=== PATIENT | female | born 1975 | race Caucasian/White ===

== ENCOUNTER 2018-10-03 12:07 | Emergency (ER) | payer SELFPAY ==
[2018-10-03] MEDS ORDERED: IBUPROFEN 800 MG TABLET PO ONE (12:51)
--- NOTE | 2018-10-03 12:52 | ER Document Report ---
HPI - HPI Patient complains to provider of: Right hip pain Time Seen by Provider: 10/03/18 12:50 Onset: Other - 4 to 5 months Onset/Duration: Persistent Quality of pain: Achy Pain Level: 3 Context: Patient presents complaining of right hip pain for the past 4 to 5 months. Patient denies any specific injury. Patient complains of pain with ambulation. Patient denies any paresthesia, urinary retention or incontinence, or fever. Associated Symptoms: Other - Right hip pain Exacerbated by: Movement, Walking Relieved by: Denies Similar symptoms previously: No Recently seen / treated by doctor: No - ROS ROS below otherwise negative: Yes Systems Reviewed and Negative: Yes All other systems reviewed and negative - CONSTITUTIONAL Constitutional: DENIES: Fever, Chills - NEURO Neurology: DENIES: Weakness - REPRODUCTIVE Reproductive: DENIES: : - MUSCULOSKELETAL Musculoskeletal: REPORTS: Extremity pain - Right hip. DENIES: Back Pain, Neck Pain, Swelling - DERM Skin Color: Normal Skin Problems: None Past Medical History - General Information source: Patient - Social History Smoking Status: Current Every Day Smoker Smoking Education Provided: Yes Frequency of alcohol use: None Drug Abuse: None Occupation: None Family History: Reviewed & Not Pertinent Psychiatric Medical History: Reports: Hx Depression Past Surgical History: Reports: Hx Cholecystectomy Vertical Provider Document - CONSTITUTIONAL Agree With Documented VS: Yes Exam Limitations: No Limitations General Appearance: WD/WN, No Apparent Distress - INFECTION CONTROL TRAVEL OUTSIDE OF THE [place] IN LAST 30 DAYS: No - HEENT HEENT: Atraumatic, Normocephalic - NECK Neck: Normal Inspection, Supple - RESPIRATORY Respiratory: Breath Sounds Normal, No Respiratory Distress - MUSCULOSKELETAL/EXTREMETIES Musculoskeletal/Extremeties: MAEW, FROM, Tender - Tenderness to right hip joint to the anterior posterior and lateral aspect of the joint. Patient with full range of motion, No Edema. negative: Eccymosis - NEURO Level of Consciousness: Awake, Alert, Appropriate Motor/Sensory: No Motor Deficit Notes: No saddle anesthesia - DERM Integumentary: Warm, Dry, No Rash Course - Re-evaluation Re-evalutation: 10/03/18 13:58 Patient without any acute findings on x-ray. Will treat symptomatically at this time. Patient would like to use crutches to help limit pain with ambulation. Good return precautions discussed. - Vital Signs Vital signs: Temp Pulse Resp BP Pulse Ox 97.8 F 79 16 110/74 95 10/03/18 12:39 10/03/18 12:39 10/03/18 12:39 10/03/18 12:39 10/03/18 12:39 - Diagnostic Test Radiology reviewed: Image reviewed, Reports reviewed Discharge - Discharge Clinical Impression: Right hip pain Condition: Stable Disposition: HOME, SELF-CARE Instructions: Anti-Inflammatory Medication ([facility]), Use of Crutches ([facility]), Sprain ([facility]) Additional Instructions: Return immediately for any new or worsening symptoms Followup with your primary care provider, call tomorrow to make a followup appointment Weightbearing as tolerated Follow-up with orthopedics for further evaluation, call today to make a follow- up appointment Prescriptions: Naproxen [Naprosyn 250 Nmg Tablet] 1 tab PO BID #14 tablet Forms: Smoking Cessation Education Referrals: [facility] ([facility]) [Provider Group] - Follow up as needed
--- NOTE | 2018-10-03 13:42 | RADIOLOGY REPORT (SQ) ---
EXAM DESCRIPTION: HIP RIGHT AP/LATERAL COMPLETED DATE/TIME: 10/03/2018 1:22 pm REASON FOR STUDY: r hip pain COMPARISON: None. NUMBER OF VIEWS: Two views. TECHNIQUE: AP pelvis and additional frog-leg view of the right hip. LIMITATIONS: None. FINDINGS: MINERALIZATION: Normal. RIGHT HIP: No fracture or dislocation. No worrisome bone lesions. LEFT HIP: No fracture or dislocation. No worrisome bone lesions. PUBIS AND ISCHIUM: No fracture. PELVIS: No fracture. SACRUM: No fracture or dislocation. No worrisome bone lesions. LOWER LUMBAR SPINE: No fracture or dislocation. No worrisome bone lesions. No significant disc disea se. SOFT TISSUES: No significant findings. OTHER: No other significant finding. IMPRESSION: No significant findings. TECHNICAL DOCUMENTATION: JOB ID: [id number] [place]-72 2010 [employer]- All Rights Reserved Reading location - IP/workstation name: [email or web address]
[2018-10-03 14:11] VITALS: BP 111/76
== END 2018-10-03 14:12 | disposition home or self-care (01) ==
LOC: ER 12:07
DX: M25.551 Pain in right hip (principal); F17.200 Nicotine dependence, unspecified, uncomplicated
CPT/HCPCS: 99283

== ENCOUNTER 2019-04-02 14:19 | Emergency (ER) | payer SELFPAY ==
[2019-04-02] MEDS ORDERED: NORMAL SALINE 1000 ML 1,000 ML IV PRN (15:13)
[2019-04-02] MEDS ORDERED: ONDANSETRON HCL INJ/PF 4 MG/2 ML SDV IV ONE ×2 (15:13→17:51)
[2019-04-02] MEDS ORDERED: KETOROLAC TROMETHAMINE INJ/PF 30 MG/1 ML SDV IV ONE (15:13)
--- NOTE | 2019-04-02 15:15 | ER Document Report ---
ED Medical Screen (RME) - General Chief Complaint: Nausea/Vomiting/Diarrhea Stated Complaint: VOMITING,DIRREHA Time Seen by Provider: 04/02/19 15:05 Notes: 43-year-old generally healthy female with history of cholecystectomy 2 years ago and pancreatitis at the same time presents to the emergency department with acute epigastric pain for the past 1 week that got significantly worse in the past 48 hours. Patient has associated nausea and vomiting and cannot hold any food or liquids down. Patient has had about 10 episodes of diarrhea in the last 48 hours. No fevers or chills. Exam: Well-appearing and nontoxic, lungs are clear to auscultation all oakley, tachycardia with regular rhythm. Abdominal exam limited in triage but patient did have acute epigastric tenderness to palpation I have greeted and performed a rapid initial assessment of this patient. A comprehensive ED assessment and evaluation of the patient, analysis of test results and completion of medical decision making process will be conducted by an additional ED providers. TRAVEL OUTSIDE OF THE [place] IN LAST 30 DAYS: No - Related Data Allergies/Adverse Reactions: No Known Allergies Allergy (Verified 10/03/18 12:11) Past Medical History Renal/ Medical History: Denies: Hx Peritoneal Dialysis Psychiatric Medical History: Reports: Hx Depression Past Surgical History: Reports: Hx Section, Hx Cholecystectomy Physical Exam - Vital signs Vitals: Temp Pulse Resp BP Pulse Ox 97.5 F 109 H 16 107/74 96 04/02/19 14:29 04/02/19 14:29 04/02/19 14:29 04/02/19 14:29 04/02/19 14:29 Course - Vital Signs Vital signs: Temp Pulse Resp BP Pulse Ox 97.5 F 109 H 16 107/74 96 04/02/19 14:29 04/02/19 14:29 04/02/19 14:29 04/02/19 14:29 04/02/19 14:29
[2019-04-02 16:03] LABS: ABSOLUTE BASOPHILS # (AUTO) 0.2 10^3/uL (0.0-0.2); ABSOLUTE EOSINOPHILS # (AUTO) 0.1 10^3/uL (0.0-0.6); ABSOLUTE MONOCYTES (AUTO) 0.7 10^3/uL (0.1-1.4); BASOPHILS % (AUTO) 1.9 % (0-2); EOSINOPHILS % (AUTO) 0.8 % (0-6); HEMATOCRIT 37.2 % (36.0-47.0); HEMOGLOBIN 12.4 g/dL (12.0-15.5); LYMPHOCYTES % (AUTO) 23.1 % (13-45); MEAN CORPUSCULAR HEMOGLOBIN 25.4 pg (27.0-33.4); MEAN CORPUSCULAR HGB CONC 33.4 g/dL (32.0-36.0); MEAN CORPUSCULAR VOLUME 76 fl (80-97); MONOCYTES % (AUTO) 5.5 % (3-13); PLATELET COUNT 626 10^3/uL (150-450); RED CELL DISTRIBUTION WIDTH 17.4 % (11.5-14.0); SEGMENTED NEUTROPHILS % (AUTO) 68.7 % (42-78); TOTAL CELLS COUNTED % (AUTO) 100 %; WHITE BLOOD COUNT 13.1 10^3/uL (4.0-10.5)
--- NOTE | 2019-04-02 16:06 | ER Document Report ---
ED General - General Chief Complaint: Abdominal Pain Stated Complaint: VOMITING,DIRREHA Time Seen by Provider: 04/02/19 15:05 TRAVEL OUTSIDE OF THE [place] IN LAST 30 DAYS: No - Related Data Allergies/Adverse Reactions: No Known Allergies Allergy (Verified 10/03/18 12:11) Home Medications: Prilosec OTC Past Medical History - Social History Smoking Status: Current Every Day Smoker Chew tobacco use (# tins/day): No Frequency of alcohol use: None Drug Abuse: None Family History: Reviewed & Not Pertinent Patient has suicidal ideation: No Patient has homicidal ideation: No Renal/ Medical History: Denies: Hx Peritoneal Dialysis Psychiatric Medical History: Reports: Hx Depression Past Surgical History: Reports: Hx Section, Hx Cholecystectomy Physical Exam - Vital signs Vitals: Temp Pulse Resp BP Pulse Ox 97.5 F 109 H 16 107/74 96 04/02/19 14:29 04/02/19 14:29 04/02/19 14:29 04/02/19 14:29 04/02/19 14:29 - Notes Notes: Patient presents emerge department planing of nausea vomiting and diarrhea is been going on for the past 2 weeks. She has not been able keep anything down. Symptoms got worse over the past 2 days. She also having pain across her upper abdomen is been going on for several days. The diarrhea is watery there is been no blood in it no recent antibiotics. No sick contacts. She has had no dysuria fevers chest pain shortness of breath or dizziness associated with this Past medical history is significant for gallstones with pancreatitis and a cholecystectomy. He has no diabetes hypertension or heart disease . Social history smokes but does not drink Family history is noncontributory. Medications include Prilosec she is been on for several years. No herbal medicines. LMP was beginning of March Review of systems pertinent positives and negatives in HPI otherwise all the systems were reviewed and acutely negative PHYSICIAN EXAM -vital signs are noted triage note and note from triage reviewed GENERAL: Well-appearing, well-nourished and in __distress from pain____ HEAD: Atraumatic, normocephalic. EYES: Pupils equal round and reactive to light, extraocular movements intact, sclera anicteric, conjunctiva are normal. ENT: nares patent, oropharynx clear without exudates. SLightly dry mucous membranes NECK: supple without lymphadenopathy LUNGS: Breath sounds clear to auscultation bilaterally and equal. No wheezes rales or rhonchi. HEART: Regular rate and rhythm without murmurs ABDOMEN: Soft, nontender, normoactive bowel sounds. Minimal tenderness to deep palpation in the right lower quadrant. There is no psoas or obturator sign. Is no percussion tenderness and no referred pain from the right EXTREMITIES: No deformity, no edema. NEUROLOGICAL: No focal neurological deficits. Moves all extremities spontaneously and on command. PSYCH: Normal mood, normal affect. SKIN: Warm, Dry, normal turgor, no rashes or lesions noted. BACK-nontender in the midline Differential diagnosis includes viral syndrome dehydration abnormal electrolytes is colitis Course - Re-evaluation Re-evalutation: 04/02/19 19:01 ED patient is remained stable she has serial exams abdominal pain has improved. She was given IV fluids and is tolerating liquids well. No diarrhea since she arrived has improved tolerating liquids well heart rate is down to 80 Medical decision making patient presents with abdominal pain is been going on for 2 weeks associated with nausea vomiting and diarrhea. She is not signifi cantly dehydrated heart rate has improved work work-up unremarkable she is feeling better at this point I think she be discharged home I see no is of a surgical abdomen. Note is that the whiteI count is minimally elevated which is nonspecific and may just more be from demargination. This point is discharged home she said the diarrhea for this long we will treat her with antibiotics. She be given a prescription for Zofran and Bactrim. Patient clear liquids for 8 hours then a bland diet and follow-up with her family doctor in 2 to 3 days patient has not had any diarrhea since being in the ED. There is unlikely that she has C. difficile as ordered initially only because of the persistent diarrhea patient reports and the fact that she is on Prilosec CT shows no inflammatory changes in the abdomen Dictation was done using voice recognition software. There may be some grammatical errors which are unintentional I discussed results of laboratory findings and diagnostic test with patie nt/family. The treatment plan was explained and I reviewed the discharge instructions with them. Questions were answered. The patient/family verbalizes understanding 04/02/19 19:06 04/02/19 19:28 - Vital Signs Vital signs: Temp Pulse Resp BP Pulse Ox 97.5 F 109 H 16 107/74 96 12/22/19 15:08 04/02/19 14:29 04/02/19 15:08 04/02/19 14:29 04/02/19 15:08 - Laboratory Result Diagrams: 04/02/19 15:47 04/02/19 15:47 Laboratory results interpreted by me: 04/02/19 04/02/19 04/02/19 15:47 15:47 17:00 WBC 13.1 H MCV 76 L MCH 25.4 L RDW 17.4 H Plt Count 626 H Absolute Neuts (auto) 9.0 H Carbon Dioxide 20 L Calcium 10.6 H Total Protein 9.0 H Urine Protein 100 H Urine Ketones 20 H Urine Bilirubin SMALL H Urine Urobilinogen 2.0 H - Diagnostic Test Radiology reviewed: Reports reviewed Discharge - Discharge Clinical Impression: Nausea vomiting and diarrhea Abdominal pain Qualifiers: Abdominal location: epigastric Qualified Code(s): R10.13 - Epigastric pain Condition: Good Disposition: HOME, SELF-CARE Instructions: Abdominal Pain ([facility]), Prescribed Antidiarrhea Medications ([facility]), Antinausea Medication ([facility]), Antispasmodics ([facility]), Vomiting ([facility]) Additional Instructions: Diarrhea Diarrhea means frequent, watery stools. There are many causes. Any problem that keeps the intestinal tract from absorbing water from the stool can lead to diarrhea. A sudden new diarrhea problem is usually caused by a virus, food sensitivity, toxic bacteria, or drugs. In this case, we expect the problem to go away soon. Testing is done only if you seem seriously ill from the diarrhea. If you have chronic diarrhea, or diarrhea that keeps coming back, we need to find out why. Chronic diarrhea can be due to inflammation of the bowels such as Crohn's disease or ulcerative colitis, food sensitivity such as intolerance to lactose or wheat protein, irritable bowel syndrome, and other problems. If yo ur diarrhea is a significant problem but it's not clear why you have it, we'll refer you to a specialist for further testing. During an episode of diarrhea, drink small amounts (two to six ounces) of clear liquids (soft drinks, sport drinks, herb teas, broth, etc). Take fluids frequently to prevent dehydration. It's usually not a problem to take mild anti- diarrhea medication such as Kaopectate or Pepto-Bismol. As the diarrhea eases, advance to small amounts of bland food (mashed potato, toast) for 24 hours. Call the physician if blood appears in your vomit or stool, if vomiting lasts longer than 24 hours, if the abdominal pain worsens or becomes localized to one area, if you develop high fever, or if you become lightheaded and weak. Please review the discharge instructions, they will tell you about your disease/injury and what you need to return to the ED for Return to the ED if you feel worse or can follow-up with your family doctor Stay on clear liquids for 8 hours then a bland diet for 2 to 3 days avoiding fatty greasy foods you Can take Imodium which is [id number] for diarrhea Follow-up in the clinic in 2 to 3 days if not improved Prescriptions: Ondansetron [Zofran Odt 4 mg Tablet] 1 tab PO Q4HP PRN #10 tab.rapdis PRN Reason: Sulfamethoxazole/Trimethoprim [Bactrim Ds Tablet] 1 each PO BID #6 tablet Dicyclomine HCl [Bentyl 20 mg Tablet] 20 mg PO QID #16 tablet Ondansetron HCl [Zofran 4 mg Tablet] 1 tab PO Q4H PRN #12 tablet PRN Reason:
[2019-04-02 16:21] LABS: ALKALINE PHOSPHATASE 93 U/L (38-126); ANION GAP 16 (5-19); ASPARTATE AMINO TRANSFERASE 34 U/L (14-36); BILIRUBIN,DIRECT 0.2 mg/dL (0.0-0.4); BILIRUBIN,TOTAL 0.7 mg/dL (0.2-1.3); BLOOD UREA NITROGEN 12 mg/dL (7-20); CALCIUM 10.6 mg/dL (8.4-10.2); CARBON DIOXIDE 20 mmol/L (22-30); CHLORIDE 103 mmol/L (98-107); GLUCOSE 107 mg/dL (75-110); POTASSIUM 4.4 mmol/L (3.6-5.0)
--- NOTE | 2019-04-02 16:30 | ER Document Report ---
ED General - General Chief Complaint: Abdominal Pain Stated Complaint: VOMITING,DIRREHA Time Seen by Provider: 04/02/19 15:05 TRAVEL OUTSIDE OF THE [place] IN LAST 30 DAYS: No - Related Data Allergies/Adverse Reactions: No Known Allergies Allergy (Verified 10/03/18 12:11) Home Medications: Prilosec OTC Past Medical History - Social History Smoking Status: Current Every Day Smoker Chew tobacco use (# tins/day): No Frequency of alcohol use: None Drug Abuse: None Family History: Reviewed & Not Pertinent Patient has suicidal ideation: No Patient has homicidal ideation: No Renal/ Medical History: Denies: Hx Peritoneal Dialysis Psychiatric Medical History: Reports: Hx Depression Past Surgical History: Reports: Hx Section, Hx Cholecystectomy Physical Exam - Vital signs Vitals: Temp Pulse Resp BP Pulse Ox 97.5 F 109 H 16 107/74 96 04/02/19 14:29 04/02/19 14:29 04/02/19 14:29 04/02/19 14:29 04/02/19 14:29 - Notes Notes: Patient is emergency room crampy lower abdominal pain is been going on for the past 2 to 3 days. Is been associated with nausea vomiting and diarrhea. The diarrhea has been loose with no blood however today she had 2 episodes of bloody stool. No clots associated with this. Report that she finished a course of what sounds like Augmentin about 2 weeks ago for dog bite. She does report she has some lightheadedness when she is been standing for a while but no chest pain shortness of breath or palpitations and no fevers. No urinary symptoms Past medical history is significant for seizures no diabetes hypertension or heart disease. Surgical history includes hysterectomy appendectomy cholecystectomy and history of hemorrhagic ovarian cyst. Course - Re-evaluation Re-evalutation: 04/02/19 19:06 Please see other dictation for history and physical - Vital Signs Vital signs: Temp Pulse Resp BP Pulse Ox 97.5 F 109 H 16 107/74 96 04/02/19 15:08 04/02/19 14:29 04/02/19 15:08 04/02/19 14:29 04/02/19 15:08 - Laboratory Result Diagrams: 04/02/19 15:47 04/02/19 15:47 Laboratory results interpreted by me: 04/02/19 04/02/19 04/02/19 15:47 15:47 17:00 WBC 13.1 H MCV 76 L MCH 25.4 L RDW 17.4 H Plt Count 626 H Absolute Neuts (auto) 9.0 H Carbon Dioxide 20 L Calcium 10.6 H Total Protein 9.0 H Urine Protein 100 H Urine Ketones 20 H Urine Bilirubin SMALL H Urine Urobilinogen 2.0 H Discharge - Discharge Clinical Impression: Abdominal pain, Nausea vomiting and diarrhea Condition: Good Disposition: HOME, SELF-CARE
[2019-04-02 17:27] LABS: APPEARANCE,URINE SLIGHTLY-CLOUDY; BILIRUBIN,URINE SMALL (NEGATIVE); COLOR,URINE AMBER; GLUCOSE, URINE NEGATIVE (NEGATIVE); KETONES,URINE 20 mg/dL (NEGATIVE); LEUKOCYTE ESTERASE,URINE NEGATIVE (NEGATIVE); NITRITE,URINE NEGATIVE (NEGATIVE); PROTEIN,URINE 100 mg/dL (NEGATIVE); URINE SPECIFIC GRAVITY 1.027
[2019-04-02] MEDS ORDERED: NORMAL SALINE 1000 ML 1,000 ML IV ONE (18:01)
--- NOTE | 2019-04-02 18:37 | RADIOLOGY REPORT (SQ) ---
EXAM DESCRIPTION: CT ABD/PELVIS WITH IV ONLY COMPLETED DATE/TIME: 04/02/2019 6:11 pm REASON FOR STUDY: Abdominal pain COMPARISON: None. TECHNIQUE: CT scan of the abdomen and pelvis performed using helical scanning technique with dynamic intravenous contrast injection. No oral contrast. Images reviewed with lung, soft tissue, and bone w indows. Reconstructed coronal and sagittal MPR images reviewed. Delayed images for evaluation of the urinary system also acquired. All images stored on PACS. All CT scanners at this facility use dose modulation, iterative reconstruction, and/or weight based d osing when appropriate to reduce radiation dose to as low as reasonably achievable (ALARA). [facility]: Dose Right [facility]: CareDose [facility]: Dose Right [facility]: Teradose 4D [facility]: [place] CONTRAST TYPE AND DOSE: contrast/concentration: Isovue 350.00 mg/ml; Total Contrast Delivered: 89.0 ml; Total Saline Delivered: 70.0 ml RENAL FUNCTION: GFR > 60. RADIATION DOSE: CT Rad equipment meets quality standard of care and radiation dose reduction techniq ues were employed. CTDIvol: 7.6 - 10.7 mGy. DLP: 1042 mGy-cm.. LIMITATIONS: None. FINDINGS: LOWER CHEST: No significant findings. LIVER: Normal size. No enhancing masses. No dilated ducts. SPLEEN: Normal size. No focal lesions. PANCREAS: No masses identified. No significant calcifications. No adjacent inflammation or peripancre atic fluid collections. Pancreatic duct not dilated. GALLBLADDER: Surgically absent. ADRENAL GLANDS: No significant masses. RIGHT KIDNEY AND URETER: No cysts identified. No solid masses identified. No calcified stones. No hyd ronephrosis or hydroureter. LEFT KIDNEY AND URETER: No cysts identified. No solid masses identified. No calcified stones. No hydr onephrosis or hydroureter. AORTA AND VESSELS: No aneurysm. No dissection. Renal arteries, SMA, celiac without significant stenos is. RETROPERITONEUM: No bulky retroperitoneal adenopathy. BOWEL AND PERITONEAL CAVITY: No obstruction or inflammatory changes. No free fluid. APPENDIX: Normal. PELVIS: No mass. No free fluid. Unremarkable bladder. ABDOMINAL WALL: No masses. No hernias. BONES: No acute findings. OTHER: No other significant finding. IMPRESSION: NO ACUTE FINDINGS IN THE ABDOMEN OR PELVIS ON CT SCAN WITH IV CONTRAST. TECHNICAL DOCUMENTATION: JOB ID: [id number] [place]-72 Quality ID # [id number]: Final reports with documentation of one or more dose reduction techniques (e.g., Au tomated exposure control, adjustment of the mA and/or kV according to patient size, use of iterative reconstruction technique) 2010 [employer]- All Rights Reserved Reading location - IP/workstation name: [email or web address]
[2019-04-02] MEDS ORDERED: HYDROCODONE/ACETAMINOPHEN 5-325 MG TABLET PO ONE (18:54)
[2019-04-02 20:06] VITALS: BP 126/80
== END 2019-04-02 20:07 | disposition home or self-care (01) ==
LOC: ER 14:19
DX: R11.2 Nausea with vomiting, unspecified (principal); R19.7 Diarrhea, unspecified; R10.13 Epigastric pain; F17.200 Nicotine dependence, unspecified, uncomplicated; Z90.49 Acquired absence of other specified parts of digestive tract
CPT/HCPCS: 96376; 99284; 96361; 96374; 96375; 36415; 83690; 84703; 85025; 81025; 80053; 81001; 74177; J1885; J2405; J7030

== ENCOUNTER 2019-11-30 10:31 | Emergency (ER) | payer SELFPAY ==
[2019-11-30 11:04] VITALS: BP 115/79
[2019-11-30] MEDS ORDERED: KETOROLAC TROMETHAMINE 60 MG/2 ML SDV IM ONE (11:45)
[2019-11-30] MEDS ORDERED: KETOROLAC TROMETHAMINE INJ/PF 30 MG/1 ML SDV IV ONE (11:52)
[2019-11-30 12:50] LABS: ABSOLUTE BASOPHILS # (AUTO) 0.1 10^3/uL (0.0-0.2); ABSOLUTE EOSINOPHILS # (AUTO) 0.3 10^3/uL (0.0-0.6); ABSOLUTE LYMPHOCYTES (AUTO) 2.8 10^3/uL (0.5-4.7); ABSOLUTE MONOCYTES (AUTO) 0.6 10^3/uL (0.1-1.4); ABSOLUTE NEUT (AUTO) 7.3 10^3/uL (1.7-8.2); BASOPHILS % (AUTO) 0.7 % (0-2); EOSINOPHILS % (AUTO) 2.8 % (0-6); HEMATOCRIT 35.5 % (36.0-47.0); HEMOGLOBIN 11.5 g/dL (12.0-15.5); LYMPHOCYTES % (AUTO) 25.5 % (13-45); MEAN CORPUSCULAR HEMOGLOBIN 25.1 pg (27.0-33.4); MEAN CORPUSCULAR HGB CONC 32.5 g/dL (32.0-36.0); MEAN CORPUSCULAR VOLUME 77 fl (80-97); MONOCYTES % (AUTO) 5.1 % (3-13); PLATELET COUNT 521 10^3/uL (150-450); RED BLOOD COUNT 4.58 10^6/uL (3.72-5.28); RED CELL DISTRIBUTION WIDTH 18.5 % (11.5-14.0); SEGMENTED NEUTROPHILS % (AUTO) 65.9 % (42-78); TOTAL CELLS COUNTED % (AUTO) 100 %; WHITE BLOOD COUNT 11.1 10^3/uL (4.0-10.5)
[2019-11-30 13:13] LABS: ALBUMIN 4.5 g/dL (3.5-5.0); ALKALINE PHOSPHATASE 71 U/L (38-126); ANION GAP 11 (5-19); ASPARTATE AMINO TRANSFERASE 15 U/L (14-36); BILIRUBIN,DIRECT 0.1 mg/dL (0.0-0.4); BILIRUBIN,TOTAL 0.4 mg/dL (0.2-1.3); BLOOD UREA NITROGEN 10 mg/dL (7-20); CALCIUM 9.7 mg/dL (8.4-10.2); CARBON DIOXIDE 22 mmol/L (22-30); CHLORIDE 107 mmol/L (98-107); GLUCOSE 106 mg/dL (75-110); POTASSIUM 4.6 mmol/L (3.6-5.0); TOTAL PROTEIN 7.9 g/dL (6.3-8.2)
--- NOTE | 2019-11-30 14:17 | RADIOLOGY REPORT (SQ) ---
EXAM DESCRIPTION: CTA CHEST IMAGES COMPLETED DATE/TIME: 11/30/2019 2:02 pm REASON FOR STUDY: upper back pain/pleurisy COMPARISON: None. TECHNIQUE: CT scan of the chest performed using helical scanning technique with dynamic intravenous contrast injection. Images reviewed with lung, soft tissue and bone windows. Reconstructed coronal and sagittal MPR images reviewed. Additional 3 dimensional post-processing performed to develop Maximal Intensity Projection images (PR P). All images stored on PACS. All CT scanners at this facility use dose modulation, iterative reconstruction, and/or weight based d osing when appropriate to reduce radiation dose to as low as reasonably achievable (ALARA). [facility]: Dose Right [facility]: CareDose [facility]: Dose Right [facility]: Teradose 4D [facility]: [place] CONTRAST TYPE AND DOSE: 67 mL Omnipaque 350- low osmolar. Contrast bolus optimized for the pulmonary arteries. Not diagnostic for the aorta. RENAL FUNCTION: BUN 10; creatinine 0.88 RADIATION DOSE: CT Rad equipment meets quality standard of care and radiation dose reduction techniq ues were employed. CTDIvol: 6.6 - 14.3 mGy. DLP: 539 mGy-cm. . LIMITATIONS: None. FINDINGS: LUNGS AND PLEURA: No masses, infiltrates, or pneumothorax. No pleural effusions or pleura l calcifications. AORTA AND GREAT VESSELS: No aneurysm. Contrast bolus not optimized for the aorta. HEART: No pericardial effusion. No significant coronary artery calcifications. PULMONARY ARTERIES: No emboli visualized in the main pulmonary arteries or the segmental branches. HILAR AND MEDIASTINAL STRUCTURES: No identified masses or abnormal nodes. HARDWARE: None in the chest. UPPER ABDOMEN: Status post cholecystectomy. Moderate hiatal hernia. THYROID AND OTHER SOFT TISSUES: The thyroid appears diffusely enlarged with few coarse calcifications and likely multiple nodules. No axillary lymphadenopathy. 6 mm nodular density is seen within the right breast lower outer quadrant BONES: No acute or significant finding. 3D MIPS: Confirm above findings. OTHER: No other significant finding. IMPRESSION: 1. No evidence of central or segmental pulmonary embolus. No acute pulmonary abnormali ty. 2. A 6 mm nodular density is seen within the right breast lower outer quadrant. Recommend correlati on with routine annual mammography. 3. Diffusely enlarged, heterogeneous appearing thyroid gland. COMMENT: Quality ID # [id number]: Final reports with documentation of one or more dose reduction techniques (e.g., Automated exposure control, adjustment of the mA and/or kV according to patient size, use of iterative reconstruction technique) TECHNICAL DOCUMENTATION: JOB ID: [id number] 2010 [employer]- All Rights Reserved Reading location - IP/workstation name: [email or web address]
--- NOTE | 2019-11-30 14:52 | ER Document Report ---
ED General - General Chief Complaint: Back Pain Stated Complaint: BACK PAIN Time Seen by Provider: 11/30/19 11:25 Mode of Arrival: Ambulatory Information source: Patient TRAVEL OUTSIDE OF THE [place] IN LAST 30 DAYS: No - HPI Notes: Patient complains of right upper back pain for several months. She states it is intermittent. She does not know anything that makes it better or worse. She states occasionally it does make her nauseated and she has vomiting. No significant cough or cold symptoms. She occasionally has had some mild shortness of breath. No known covert virus exposures. She denies any trauma. There is no significant radiation of the pain. It is sharp. She states she has had a previous cholecystectomy. - Related Data Allergies/Adverse Reactions: No Known Allergies Allergy (Verified 11/30/19 10:58) Home Medications: prilosec Past Medical History - General Information source: Patient - Social History Smoking Status: Current Every Day Smoker Chew tobacco use (# tins/day): No Frequency of alcohol use: None Drug Abuse: Marijuana Family History: Reviewed & Not Pertinent Patient has homicidal ideation: No Renal/ Medical History: Denies: Hx Peritoneal Dialysis Psychiatric Medical History: Reports: Hx Depression Past Surgical History: Reports: Hx Section, Hx Cholecystectomy Review of Systems - Review of Systems Constitutional: denies: Chills, Fever Gastrointestinal: Nausea, Vomiting Genitourinary: denies: Dysuria, Discharge -: Yes All other systems reviewed and negative Physical Exam - Vital signs Vitals: Temp 98.8 F 11/30/19 10:59 Interpretation: Normal - General General appearance: Appears well, Alert - HEENT Head: Normocephalic, Atraumatic Eyes: Normal Pupils: PERRL - Respiratory Respiratory status: No respiratory distress Chest status: Nontender Breath sounds: Normal Chest palpation: Normal - Cardiovascular Rhythm: Regular Heart sounds: Normal auscultation Murmur: No - Abdominal Inspection: Normal Distension: No distension Bowel sounds: Normal Tenderness: Nontender Organomegaly: No organomegaly - Back Back: Normal, Nontender - Extremities General upper extremity: Normal inspection, Nontender, Normal color, Normal ROM, Normal temperature General lower extremity: Normal inspection, Nontender, Normal color, Normal ROM, Normal temperature, Normal weight bearing. No: Jay's sign - Neurological Neuro grossly intact: Yes Cognition: Normal Orientation: AAOx4 [place] Coma Scale Eye Opening: Spontaneous [place] Coma Scale Verbal: Oriented [place] Coma Scale Motor: Obeys Commands [place] Coma Scale Total: 15 Speech: Normal Motor strength normal: LUE, RUE, LLE, RLE Sensory: Normal - Psychological Associated symptoms: Normal affect, Normal mood - Skin Skin Temperature: Warm Skin Moisture: Dry Skin Color: Normal Course - Re-evaluation Re-evalutation: 11/30/19 14:48 Patient arrives with right upper back pain. Work-up was unremarkable for a cause of the back pain. No evidence of any type of tumor or pulmonary embolism. No evidence of any intra-abdominal pathology. No evidence of cardiac or pulmonary pathology. Patient did have a nodule noticed in the right breast incidentally on the CT scan and was educated about this finding and the need to follow-up for a mammogram. - Vital Signs Vital signs: Temp Pulse Resp BP Pulse Ox 98.8 F 89 20 115/79 99 11/30/19 11:02 11/30/19 11:02 11/30/19 11:02 11/30/19 11:02 11/30/19 11:02 - Laboratory Result Diagrams: 11/30/19 12:00 11/30/19 12:00 Laboratory results interpreted by me: 11/30/19 12:00 WBC 11.1 H Hgb 11.5 L Hct 35.5 L MCV 77 L MCH 25.1 L RDW 18.5 H Plt Count 521 H - Diagnostic Test Radiology reviewed: Image reviewed, Reports reviewed - EKG Interpretation by Oh EKG shows normal: Sinus rhythm Rate: Normal - 60 Rhythm: NSR [place]/QRS: No: Right axis deviation, Left axis deviation Discharge - Discharge Clinical Impression: Upper back pain on right side Condition: Stable Disposition: HOME, SELF-CARE Instructions: Oral Narcotic Medication ([facility]) Additional Instructions: A nodule was seen in your right breast on the CT scan. It is very important that you have follow-up for this nodule as soon as possible. You need to obtain a mammogram as soon as you can to evaluate this nodule further. Prescriptions: Hydrocodone/Acetaminophen [Stuart 5-325 mg Tablet] 1 tab PO Q6 PRN 3 Days #12 tablet PRN Reason: For Breakthrough Pain Ondansetron [Zofran Odt 4 mg Tablet] 1 - 2 tab PO Q4H PRN #15 tab.rapdis PRN Reason: For Nausea/Vomiting Referrals: [facility] [Provider Group] - Follow up as needed
--- NOTE | 2019-11-30 18:40 | EKG REPORT ---
SEVERITY:- BORDERLINE ECG - SINUS RHYTHM SHORT MA INTERVAL, ACCELERATED AV CONDUCTION : Confirmed by: Maxim Gaona 30-Nov-2019 18:38:42
== END 2019-11-30 14:59 | disposition home or self-care (01) ==
LOC: ER 10:31
DX: M54.9 Dorsalgia, unspecified (principal); M54.6 Pain in thoracic spine; R11.2 Nausea with vomiting, unspecified; F17.200 Nicotine dependence, unspecified, uncomplicated
CPT/HCPCS: 93005; 99285; 96372; 96374; 36415; 85025; 80053; 84484; 71275; 93010; J1885